=== PATIENT | female | born 1960 | race Caucasian/White ===

== ENCOUNTER → 2020-06-08 15:22 | Outpatient (CLI) | payer MEDICARE, SELFPAY ==
[2020-06-08 15:58] LABS: Add Manual Diff / Slide Review NO; Basophils Absolute Auto 100 /uL (0-100); Basophils Percent Auto 0.8 % (0-2); Eosinophils Absolute Auto 200 /uL (0-450); Eosinophils Percent Auto 1.7 % (2-4); Hematocrit 45.9 % (36-46); Hemoglobin 15.6 g/dL (12.0-16.0); Lymphocytes Absolute Auto 3600 /uL (1100-4500); Lymphocytes Percent Auto 27.8 % (25-40); Mean Corpuscular HGB Conc 34.1 % (30-36); Mean Corpuscular Hemoglobin 30.2 PG (26-34); Mean Corpuscular Volume 88.7 fL (80-100); Monocytes Absolute Auto 800 /uL (0-900); Monocytes Percent Auto 5.7 % (3-14); Neutrophils Absolute Auto 8400 /uL (1500-7000); Platelet Count 229 X10^3/uL (150-400); Red Blood Cell Count 5.17 X10^6/uL (4.0-5.2); Red Cell Distribution Width 13.9 % (11.6-14.8); White Blood Cell Count 13.1 X10^3/uL (4.5-11.0)
[2020-06-08 16:28] LABS: Hemoglobin A1C% w Est Avg Glu 5.9 % (4.0-6.0)
[2020-06-08 17:36] LABS: BUN Creatinine Ratio 33.3 (6-22); Blood Urea Nitrogen 20 mg/dL (7-17); Calcium 9.5 mg/dL (8.4-10.2); Carbon Dioxide 26 mmol/L (22-32); Chloride 103 mmol/L (98-107); Estimated Glomerular Filt Rate > 60.0 mL/min (>60); Glucose 87 mg/dL (70-100); HEMOLYSIS < 15 (0-50); Potassium 4.5 mmol/L (3.4-5.1); Sodium 136 mmol/L (137-145)
== END ==
PROVIDERS: Referring Provider Orthopaedic Surgery Adult Reconstructive Orthopaedic Surgery; Visit Provider Orthopaedic Surgery Adult Reconstructive Orthopaedic Surgery
DX: Z01.812 Encounter for preprocedural laboratory examination (principal); R73.9 Hyperglycemia, unspecified
CPT/HCPCS: 36415; 80048; 83036; 85025

== ENCOUNTER → 2020-06-13 13:39 | Outpatient (CLI) | payer MEDICARE, SELFPAY ==
[2020-06-13 17:40] LABS: COVID19 -Nasal RAPID Negative (Negative)
== END ==
PROVIDERS: Visit Provider Physician Assistant
DX: Z20.822 Contact with and (suspected) exposure to COVID-19 (principal)
CPT/HCPCS: 87635; C9803

== ENCOUNTER 2020-06-15 11:02 | Day surgery (SDC) | payer MEDICARE, SELFPAY ==
[2020-06-15] VITALS (18 sets, daily range): BP systolic 106–136; BP diastolic 54–80; PULSE 73–95; RESP 16–24; TEMP 36.1–37.2; O2SAT 92–97; BMI 28.0
--- NOTE | 2020-06-15 | DI.RAD.S_ITS ---
PROCEDURE: XR PELVIS 1-2V INDICATIONS: RIGHT ANTERIOR HIP TECHNIQUE: 2 view(s) of the pelvis acquired. COMPARISON: [facility], CR, XR PELVIS WITH BILATERAL LATERAL HIPS, 04/04/2020, 14:07. FINDINGS: Bones: No fractures or dislocations. No suspicious bony lesions. Right hip arthroplasty is present. Hardware is intact without evidence of hardware fracture or periprosthetic loosening. There is severe narrowing of the left hip joint with areas of subchondral sclerosis and cysts. There is a slight appearance of flattening of the femoral head. Soft tissues: Visualized bowel gas pattern is normal. No suspicious soft tissue calcifications. IMPRESSION: 1. Right hip arthroplasty. 2. 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 Dictated by: Caterina Limon M.D. on 06/15/2020 at 17:40 Approved by: Caterina Limon M.D. on 06/15/2020 at 17:41
--- NOTE | 2020-06-15 07:47 | DI.RAD.S_ITS ---
PROCEDURE: XR HIP W PEL IF DONE RT 2V INDICATIONS: Right BART, anterior TECHNIQUE: 2 views of the hip were acquired. COMPARISON: [facility], CR, XR PELVIS 1-2V, 06/15/2020, 15:58. FINDINGS: Intraoperative images demonstrating right hip arthroplasty. There is good anatomic alignment. Osseous structures appear intact. IMPRESSION: Intraoperative right hip arthroplasty with good anatomic alignment. Dictated by: Caterina Limon M.D. on 06/15/2020 at 17:42 Approved by: Caterina Limon M.D. on 06/15/2020 at 17:42
[2020-06-15] MEDS: LACTATED RINGERS 1,000 ML 42 ML IV (12:00)
[2020-06-15] MEDS: PREGABALIN 75 MG CAPSULE PO (12:03)
[2020-06-15] MEDS: ACETAMINOPHEN 325 MG TABLET 975 MG PO (12:03)
[2020-06-15] MEDS: CELECOXIB 200 MG CAPSULE PO (12:04)
--- NOTE | 2020-06-15 12:45 | PM.PREOP ---
Pre-operative Note COVID-19 COVID-19 status: Negative Result date/Date tested (Pos, Neg/Pending): 06/13/20 Interval Note History & Physical reviewed/Exam performed by Physician: Yes Changes to H&P: No H&P completed within 30 days and has changed as indicated here:: Plan for right anterior BART
[2020-06-15] MEDS: CEFAZOLIN 2 GM/100 ML FROZ.PIGGY IV ×2 (13:31→21:15)
[2020-06-15] MEDS: TRANEXAMIC ACID 1,000 MG VIAL 2000 MG INJ ×2 (13:58→15:28)
--- NOTE | 2020-06-15 14:07 | SUR.OPER ---
Supine on padded [place] table with bilateral legs secured in padded positioning boots and suspended in positioning spars, operative leg in traction per surgeon. Head on one pillow. Arm on non-operative side secured on padded armboard <90 degrees abduction. Arm on operative side padded and resting across chest then secured with tape over sheet. Padded perineal post in place per surgeon.
[2020-06-15] MEDS: KETOROLAC 30 MG/ML VIAL IV (14:13)
[2020-06-15] MEDS: ROPIVACAINE 0.5% PF 5 MG/ML 20ML VIAL 60 ML INJ (14:14)
[2020-06-15] MEDS: MORPHINE 4 MG/ML INJ INJ (14:14)
[2020-06-15] MEDS: SODIUM CHLORIDE IRRIG SOLUTION 250 ML, POVIDONE-IODINE SPONGE STICKS 1 APPLIC IRR (14:15)
--- NOTE | 2020-06-15 15:51 | P.OP_ITS ---
Operative Date/Time/Diagnoses Date of procedure: 06/15/20 Time of procedure: 15:51 Pre-op diagnosis: right hip OA Post-op diagnosis: same Procedure & Clinicians Procedure: right anterior BART Same procedure as scheduled: Yes Indications: severe right hip OA Surgeon: Mathieu León Coal Crusher Operator: Brendan Sanchez Anesthesia Type: General and Spinal Operative Notes Findings: Severe right hip osteoarthritis with obliteration of the joint space large head and neck osteophytes large acetabular rim osteophytes sclerotic bone and subchondral cysts. Closure Type: primary Prosthetic devices, grafts, tissues, transplants, or devices: Lovell [employer]hew R3 52 mm cup 1x 15 mm screw 1x 25 mm screw 52 x 36 mm ceramic Biolox liner Size 4 high offset anthology stem 36+ 4 delta Biolox ceramic head Estimated Blood Loss (mL): 200 Procedure in detail: Patient was met in the preoperative holding area where the site and side of surgery were marked by . Informed consent had been reviewed in clinic was also reviewed the preoperative holding area. All last minute questions were answered. Patient is about back to the operating room where she received a spinal anesthetic. She was then placed supine on operating room table and induced under general anesthesia. Bilateral feet were then placed in well-padded [place] table boots. The right lower extremity then prepped and draped in normal sterile fashion. A surgical time-out was performed verifying the site and side of surgery as well as the name patient. A 10 cm long incision was made in the skin using 10. Blade from approximately 2 cm distal and 1 cm lateral to at IS aiming towards the fibular head. Electrocautery was used to dissect down the level of the tensor fascia. The tensor fascia was then incised using a new 10. Blade and Allis clamp was placed on the medial leaflet the tensor fascia and the tensor muscle self was reflected laterally. A Cobra was placed over the superior aspect of femoral neck. A Meyerding retractor was then placed over the lateral aspect of the rectus femoris and retracted medially. This gave us good exposure to the sending branches of the femoral circumflex vessels. These were coagulated using electrocautery. A 2nd Cobra retractor was then placed on the inferior aspect of the femoral neck and a bent Hohmann was placed over the anterior rim of the acetabulum to give us good exposure the femoral neck. An inverted T-shaped capsulotomy was then performed and a FiberWire suture placed on the superior and inferior leaflets of the capsulotomy. At this point it was noted she had large neck and rim osteophytes. Retractors then placed intracapsularly a rongeur was used to remove some the next osteophytes at the reciprocating saw was used to make a femoral neck cut. The head was then able to be removed without breaking any the rim osteophytes. I began reaming under direct visualization with a 43 mm Reamer to get through the sclerotic bone and then upsized by 2s on on this until 49 mm Reamer. I then brought in fluoroscopy to guide final reaming. Reaming under fluoroscopic guidance at 49 mm and 51 mm reamers. This had good resistance at 51 mm I then touch reamed the rim with a 52 mm Reamer then selected R3 52 mm cup and this is malleted into place under fluoroscopic guidance. Two screws were then placed. A trial 52 x 36 mm flat liner was then placed. The femoral elevator hook was then placed in the posterior aspect of the femur. The femur was externally rotated to 120? of external rotation was extension the floor and adducted. A bent Hohmann was then placed over the superior aspect of the superior leaflet and the superior leaflet was released from the inner shoulder of the greater trochanter. A single prong retractor was then placed over the greater trochanter and Meyerding was placed over the medial calcar. At this point was noted the residual neck cut was exceptionally long. An oscillating saw was then used to make a napkin ring cut of the femoral neck. I then used a canal finer followed by a chili pepper broach followed by a 1. Broach up to a size 4. I then calcar planed off the size 4 broach. I then trialed with a high offset neck and a 36+ 0 head. The hip was stable to maximal external rotation as well as external rotation to 90? and extension to the floor. Fluoroscopy was brought in which showed good neck good canal fill with the femoral component as well as equal leg lengths. We elected to lengthen her because she short on the chondral lateral side due to severe osteoarthritis as well we 1 medial to make up this length on the contralateral side. The hip was then dislocated the trial components removed including the acetabular liner. A 52 x 36 mm Biolox Delta ceramic liner was then malleted into the cup checking the the rim was flush. Then turned our attention back to the femur removed the broach and placed a size 4 femoral stem with high offset. I then placed a 36+ 4 Biolox Delta ceramic head on the trunnion and malleted this into place. The hip was then reduced a final time. Local anesthetic injection was infiltrated into the capsule the periarticular tissues. Betadine solution was then placed in the wound. Final fluoroscopic images were obtained. The Betadine solution was then lavaged with copious normal saline the capsulotomy was closed using a running Ethibond suture the FiberWire tag sutures were removed. The tensor fascia was then closed with a running locking 1. Vicryl 2 0 Vicryl in the subcutaneous layer and 3-0 running Stratafix in the subcuticular followed by Dermabond on the skin and Aquacel dressing. Complications: none Post-operative Condition: stable Disposition: PACU Plan for aftercare: 24 hours post-op abx, ASA 325mg BID for 6 weeks for DVT prophylaxis, WBAT RLE
[2020-06-15] MEDS: OXYCODONE IR 5 MG TABLET PO ×2 (16:08→21:16)
[2020-06-15] MEDS: hydrOXYzine pamoate 25 MG CAPSULE PO (16:17)
[2020-06-15] MEDS: fentaNYL 100 MCG/2 ML INJ IV (16:26)
[2020-06-15] MEDS: LACTATED RINGERS 1,000 ML 125 ML IV (17:25)
--- NOTE | 2020-06-15 19:51 | PC.NURSE ---
Admit/Evening Shift Note- Patient arrived to room via bed from PACU at 1705. ADmit questions done, medications reviewed, and physical assessemnt and skin check completed. Oriented patient to bed and bed coontrols, room, lights, phone, menu, bathroom, and call vela/tv remote. No complaints of n/v. Patient tolerated dinner without issue. Ice pack in place to right hip. Dressing to right hip C/D/I. Safety measures in place. Patient agrees to call for assistance. CAll vela and phone within reach. Will continue to monitor.
[2020-06-15] MEDS: TRAMADOL 50 MG TABLET 100 MG PO ×2 (20:00→23:29)
[2020-06-15] MEDS: ASPIRIN EC 81 MG TABLET PO (21:15)
[2020-06-15] MEDS: ACETAMINOPHEN 325 MG TABLET 650 MG PO (21:15)
[2020-06-15] MEDS: IBUPROFEN 400 MG TABLET PO (21:16)
[2020-06-15] MEDS: DOCUSATE 100 MG CAPSULE PO (21:16)
[2020-06-15] MEDS: AMITRIPTYLINE 25 MG TABLET 50 MG PO (21:56)
[2020-06-16] MEDS: IBUPROFEN 400 MG TABLET PO ×3 (00:33→09:07)
[2020-06-16] MEDS: LACTATED RINGERS 1,000 ML 125 ML IV (01:55)
[2020-06-16] MEDS: OXYCODONE IR 5 MG TABLET PO ×4 (03:06→12:05)
--- NOTE | 2020-06-16 03:14 | PC.NURSE ---
0036 patient is alert and oriented. Breath sounds CTA with RA sat of 93%; on continuous oximetry. HRR. Denies nausea. BT present but denies passing flatus as yet. Denies dysuria, frequency or urgency with urination. Able to move self in bed although is unable to lift right leg off bed as yet. Gait not assessed at this time but evening RN reports patient was up with walker and 1 assist; patient denies any weakness in right LE. Aquacel dressing is CDI. Does complain of 4/10 right groin pain and was medicated at shift change with Tramadol and now with scheduled Ibuprofen and declines any additional pain medication; ice pack applied. Denies any tingling/numbness and skin is warm to touch; good capillary refill. Wearing bilateral calf SCD's. Fall risk score is moderate and bed alarm is activated. At this time patient called and states she is having 5/10 right hip and abdominal pain. Medicated with Oxycodone. Believes abdominal pain may be gas pains. Up to bathroom with walker and 1 assist.
[2020-06-16 03:34] VITALS: BP 139/61; PULSE 102; RESP 16; TEMP 36.8; O2SAT 93
[2020-06-16] MEDS: CEFAZOLIN 2 GM/100 ML FROZ.PIGGY IV (05:19)
[2020-06-16] MEDS: LEVOTHYROXINE 75 MCG TABLET PO (05:49)
[2020-06-16 06:34] LABS: Hematocrit 35.5 % (36-46); Hemoglobin 11.8 g/dL (12.0-16.0)
[2020-06-16 07:45] VITALS: BP 141/82; PULSE 81; RESP 18; TEMP 36.7; O2SAT 97
[2020-06-16] MEDS: ASPIRIN EC 81 MG TABLET PO (09:07)
[2020-06-16] MEDS: ACETAMINOPHEN 325 MG TABLET 650 MG PO (09:07)
[2020-06-16] MEDS: DOCUSATE 100 MG CAPSULE PO (09:07)
[2020-06-16] MEDS: TRAMADOL 50 MG TABLET 100 MG PO (09:08)
[2020-06-16] MEDS: SODIUM CHLORIDE 0.9% FLUSH 10 ML IV (09:08)
--- NOTE | 2020-06-16 09:12 | PC.NURSE ---
Addendum entered by Mara Avelar R.N. 06/16/20 12:09: Patient given Oxy 5mg PO PRN before discharge, pain 7/10. Patient discharged via personal wheelchair with gabriela accompanied to pharmacy where patient and would like to wait for prescriptions to be filled. Addendum entered by Mara Avelar R.N. 06/16/20 12:02: IV removed for patient discharge. Education given regarding f/u appointment, medications, s/s of infection, fall risks at home and activity. Patient verbalized understanding. Prescriptions given to Fish, to fill at pharmacy. Patient dressed. Tolerated. Original Note: Patient A/O x 4. Up with SBA using FWW to the restroom, voiding clear, yellow urine. Last BM 06/14, BT active x 4. R hip dressing CDI. No redness, streaking, pulses equal bilaterally. Patient c/o pain 7/10, PRN Oxy 5 mg administered. Patient afebrile. SCD's on bilaterally. Lungs CTA, HR WNL. Patient up to chair. Call light in reach. Patient verbalizes understanding to call before getting up.
--- NOTE | 2020-06-16 09:36 | PM.DS.1 ---
History of Present Illness History of Present Illness Date Patient Seen: 06/16/20 Time Patient Seen: 09:36 Chief complaint: *OPB* Narrative: Please refer to HPI previously documented in chart. Discharge Providers Provider Discharge Date: 06/16/20 Primary care physician: Doctor Demetrice MD Consults: 06/15/20 07:47 Consult to Anesthesiology Routine Comment: Consulting Provider: Anesthesiologist Reason for consultation: Regional block for post operative pain control 06/15/20 17:11 Consult to Discharge Planning Routine Comment: Consult to Physical Therapy Evaluate & Treat Comment: Physician Instructions: post op BART protocol Consult to Respiratory Therapy Evaluate & Treat Comment: Physician Instructions: Evaluate and treat Discharge provider: Tony Meeks PA-C Summary Hospital Course Discharge Diagnosis: Right hip osteoarthritis Status post right total anterior hip arthroplasty Hospital Course: 59-year-old female with the above-listed diagnoses was appropriately consented for the above listed procedure presenting to the OR undergoing said procedure without difficulty or complication then admitted for rehabilitation convalescing without significant issue and stable for discharge home safely today after evaluation noting ability to void without difficulty and denying intractable pain or dysfunction including but not limited to fever, chills, chest pain and shortness of breath. The patient and or family verbalized understanding postoperative care instructions and plan for follow-up for re-evaluation in 2 weeks. Status at Discharge Cognitive/behavioral status at discharge: oriented Functional status at discharge: uses cane/walker Overall status at discharge: patient is progressing back to baseline Time Spent with Patient Time spent: Less than 30 minutes Exam Vital Signs (past 8 hours): - 06/16/20 03:34 06/16/20 07:45 Temperature 98.2 F 98.1 F Pulse Rate 102 H 81 Respiratory Rate 16 18 Blood Pressure 139/61 141/82 H Pulse Oximetry 93 97 Oxygen Delivery Method Room Air Oxygen Flow Rate 0 Narrative Exam Narrative: Well-developed well nourished and observed resting comfortably in no apparent distress, alert and oriented x3 with normal heart rate and inspiratory effort. Their dressing was clean, dry and intact. The patient's extremities were neurovascularly intact without signs or symptoms of DVT. Objective Labs Result Diagrams: 06/16/20 06:14 Labs: Laboratory Results - last 24 hr 06/16/20 06:14 Hgb 11.8 L Hct 35.5 L PFSH Social History household members: spouse Smoking Status: Current every day smoker alcohol intake: former Discharge Assessment & Plan Assessment and Plan Assessment: Right hip osteoarthritis Status post right total anterior hip arthroplasty in stable condition Plan of Treatment: Discharge home today. Total hip care protocol. Follow-up in 2 weeks for re-evaluation or sooner as needed. Discharge Plan Discharge Plan Patient Disposition: Home Discharge orders & Medications Discharge Orders: Discharge (Order); Ordered 06/16/20 Ordered By: Tony Meeks Prescriptions: New acetaminophen 325 mg Tablet 650 mg PO TID Qty: 60 RF: 0 aspirin 325 mg tablet,delayed release (DR/EC) 325 mg PO BID Qty: 90 RF: 0 oxycodone 5 mg Tablet 5 mg PO Q4-5H PRN (Reason: Pain, Moderate (4-6)) Qty: 60 RF: 0 Continued meloxicam 15 mg tablet 15 mg PO DAILY RF: 0 lisinopril 20 mg tablet 20 mg PO DAILY RF: 0 amitriptyline 50 mg tablet 50 mg PO DAILY RF: 0 levothyroxine 75 mcg Tablet 75 mcg PO DAILY RF: 0 albuterol 2 puff PO BID RF: 0 Changed aspirin 325 mg Tablet 325 mg PO BID Qty: 0 RF: 0 Discontinued tramadol 50 mg tablet 100 mg PO QID RF: 0 Follow up/Referrals: Doctor Suresh MD [Primary Care Provider] - Mathieu León MD [Physician] - (2 weeks) Diet/Activity/Treatments Diet: Diet as Tolerated Activity: WBAT and avoid falls Cold/Heat Therapy: Ice 20 min on per hour as tolerated. Skin/Wound/Dressing Care Report to your healthcare provider any signs of infection, such as:: chills, fever, night sweats, increased pain, unusual drainage and unusual redness Dressing: Keep clean dry and intact Visit Report/Discharge Packet Instructions: DI for Hip Replacement Stand Alone Forms: Surgery Discharge Discharge Data Primary Care Provider: Doctor Demetrice Attending Provider: Mathieu León Quality VTE Deep Vein Thrombosis/Pulmonary Embolism Present on Admission: No
--- NOTE | 2020-06-16 09:51 | PT.IIE ---
Current Diagnoses Unilateral primary osteoarthritis, right hip (06/15/20) Surgery Performed Operation Date: 06/15/20 13:15 Actual Procedures p Total Hip Arthroplasty/Anterior Approach(Right) - Mathieu León MD Physical Therapy Inpatient Evaluation/Re-Eval M1 PT/OT-IP Prior Functional Status Start: 06/16/20 12:22 Freq: NEEDED Status: Active Protocol: Document 06/16/20 09:51 AB (Rec: 06/16/20 12:38 AB [id number]) Medical Review Prior Functional Status Medical History Reviewed Yes Communication able to make needs known Mobility and Gait pt stated that she is modified independent with mobility from a w/c level since december of last year due to hip pain but able to ambulate from bed to the toilet using a 4WW Social History Household Members spouse Living Arrangements House Number of Floors (Floors) One Floor Number of Stairs To Enter/Railing? 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 Additional Social History Comment stated that she has a [email or web address] shop in [place] has R side bed rails M2 PT-IP Current Condition Start: 06/16/20 12:22 Freq: NEEDED Status: Active Protocol: Document 06/16/20 09:51 AB (Rec: 06/16/20 12:38 AB [email or web address]) Physical Therapy Current Condition Current Condition Evaluation Date 06/16/20 Treatment Diagnosis R BART anterior approach; difficulty in walking Onset Date 06/15/20 Precautions Anterior Hip Precautions No Hip Extension,No Hip External Rotation Weight Bearing Status Weight Bearing Status Weight Bear as Tolerated Allowed Weight Bearing Amount (enter % RLE WBAT or #) (%) M3 PT-IP Subjective Start: 06/16/20 12:22 Freq: NEEDED Status: Active Protocol: Document 06/16/20 09:51 AB (Rec: 06/16/20 12:38 AB [email or web address]) Subjective Physical Therapy Visit Type Type Initial Evaluation Visit Start Time 09:51 Visit Stop Time 10:27 Total Visit Minutes 36 Number of COMPLAINT SUPERVISOR Visits 0 Physical Therapy Visit Comments Patient Comments pt is agreeable to do PT Therapy Pain Assessment Pain When Pain Assessed During Mobility Pain Present Pain Present Pain Reported Location right hip Intensity 4 Scale Used Numeric (0 - 10) Pain Management Techniques Distraction,Modification of Treatment,Re-positioning, Timing of Activity with Medications M4 PT-IP Mobility and Gait Start: 06/16/20 12:22 Freq: NEEDED Status: Active Protocol: Document 06/16/20 09:51 AB (Rec: 06/16/20 12:38 AB [email or web address]) PT-Bed Mobility Assessment Supine to Sit Supine to Sit Standby Assistance Sit to Supine Sit to Supine Standby Assistance PT-Transfer Assessment Sit to and From Stand Sit to and from Stand Standby Assistance Equipment Transfer Assistive Device Gait Belt,Front Wheeled Walker Orthotic/Prosthetic Devices or Brace: No Transfers Transfer Destination Bed,Chair Transfer Technique ambulated using FWW Transfer Ability Level of Assist Standby Assistance,Contact Guard Assistance,1 Person Assistance,Use of Upper Extremities Comments Mobility Comments educated pt on anterior hip precautions. completed sit to stand from chair CGA and cues . ambulated in room using FWW CGA and ambulated to the bed 20 ft CGA. completed supine<> sit SBA. pt assist her RLE up on bed with B hands. pt ambulated more in room using FWW ~ 40 ft SBA. agreed to sit up on chair. positioned on chair. call light and table placed within reach. offered caregiver training and declined. stated that she will be fine and does not need spouse to do any training. pt is aware of her hip precautions and plans to use her w/c to get into the house. Gait Assessment Gait Gait Assistance Required: Standby Assistance,Contact Guard Assist Distance (Feet) 40 Able to Maintain Weight Bearing Status Yes During Gait Assistive Devices Assistive Device Gait Belt Factors Limiting Gait Function Factors Limiting Gait Function Decreased Activity Tolerance, Decreased Strength,Pain,Poor Balance,Poor Safety Awareness Comments Gait Comments pls refer to mobility section for details PT-Balance Assessment Sitting Balance and Reactions Static Sitting Balance Ability Good Dynamic Sitting Balance Ability Good Standing Balance and Reactions Static Standing Balance Ability Fair Dynamic Standing Balance Ability Fair Device Used FWW M5 PT-IP Objective Assessments Start: 06/16/20 12:22 Freq: NEEDED Status: Active Protocol: Document 06/16/20 09:51 AB (Rec: 06/16/20 12:38 AB [email or web address]) Orientation Orientation/Cognition Level of Alertness Alert Orientation Name,Place,Situation Safety Awareness Decreased Safety Awareness Memory Description Short Term Impaired Gross Range of Motion Lower Extremity ROM Assessment Within Functional Limits Strength Lower Extremity Strength Assessment Right Impaired Hip 3-/5 Knee 3+/5 Sensation Assessment Sensation Gross Sensation WNL Muscle Tone Muscle Tone WNL Yes M6 PT-IP Treatment Start: 06/16/20 12:22 Freq: NEEDED Status: Active Protocol: Document 06/16/20 09:51 AB (Rec: 06/16/20 12:38 AB [id number]) Physical Therapy Treatment Education Education Provided Precautions,Weight Bearing Status,Post-Op Packet,Safety M7 PT-IP Assessment and Plan Start: 06/16/20 12:22 Freq: NEEDED Status: Active Protocol: Document 06/16/20 09:51 AB (Rec: 06/16/20 12:38 AB [email or web address]) PT Summary Assessment and Plan Potential Rehabilitation Potential Good Status of Condition at Evaluation Stable Summary Impairments Pain,ROM,Strength,Balance, Coordination,Sensation,Tone, Cognition,Bed Mobility, Transfers,Gait,Activity Tolerance Assessment Summary pt requiring SBA with mobility . initially requiring CGA but was able to complete tasks towards end of tx session with only SBA. pt plans to go home and spouse to assist her. pt stated that she is set up for outpt PT. Pt may go home when medically stable. Goals Bed Mobility Goal Independent Transfer Goal Independent,Front Wheeled Walker Gait Goal Independent,Front Wheel Walker Gait Distance 250 Days to Meet Goals 3 Frequency of Treatment Frequency Of Treatment Twice a Day Treatment Plan Physical Therapy Treatment Plan Bed Mobility Training,Transfer Training,Gait Training, Therapeutic Exercise,Balance Retraining,Post Op Education, Discharge Planning,Hot or Cold Pack,Neuromuscular Re-ed, Coordination Retraining,Manual Therapy Precautions Anterior Hip Precautions No Hip Extension,No Hip External Rotation Recommendations To Nursing Amount of Assist Needed 1 Person Assist Discharge Recommendations PT Discharge Recommendations Home with Assistance, Outpatient PT Transportation Needs at Discharge Private Vehicle
--- NOTE | 2020-06-16 10:40 | CM.IDA ---
Initial DCP Assessment Note Pt is a 59 yo female, resident of [place], now POD#1 from Rt hip surgery w/ Dr León PCP: Not Listed Payer: [facility] Reviewed chart, pt discussed in multidisciplinary rounds this morning. Therapy has cleared pt for return home w/family to assist and pt has planned for home, DC order from Ortho has already been initiated this morning. Met w/patient to introduce role. 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 No needs expected from DC planning team although will remain available in case this changes today. Drea Cook, MARKETING ANALYTICS LEAD
== END 2020-06-16 12:14 | disposition home or self-care (01) ==
LOC: OR 11:03 → AC 11:04
PROVIDERS: Referring Provider Orthopaedic Surgery Adult Reconstructive Orthopaedic Surgery; Visit Provider Orthopaedic Surgery Adult Reconstructive Orthopaedic Surgery
PROC: (CPT 27130; principal; 2020-06-15 13:15)
DX: M16.11 Unilateral primary osteoarthritis, right hip (principal); F17.210 Nicotine dependence, cigarettes, uncomplicated; E03.9 Hypothyroidism, unspecified; I10 Essential (primary) hypertension; E78.5 Hyperlipidemia, unspecified
CPT/HCPCS: 27130; 36415; 72170; 73502; 76000; 82962; 85014; 85018; 94762; 97161; 97530; 99406; C1776; A9270; J0690; J1100; J1885; J2250; J2270; J2274; J2405; J2704; J3010

== ENCOUNTER → 2020-10-18 13:25 | Outpatient (CLI) | payer MEDICARE, MEDICAID, SELFPAY ==
[2020-06-15 11:04] VITALS: BMI 28.0
[2020-10-18 14:56] LABS: Add Manual Diff / Slide Review NO; Basophils Absolute Auto 0 /uL (0-100); Basophils Percent Auto 0.4 % (0-2); Eosinophils Absolute Auto 100 /uL (0-450); Eosinophils Percent Auto 1.2 % (2-4); Hematocrit 46.1 % (36-46); Hemoglobin 15.1 g/dL (12.0-16.0); Lymphocytes Absolute Auto 3100 /uL (1100-4500); Lymphocytes Percent Auto 26.6 % (25-40); Mean Corpuscular HGB Conc 32.7 % (30-36); Mean Corpuscular Hemoglobin 27.9 PG (26-34); Mean Corpuscular Volume 85.4 fL (80-100); Monocytes Absolute Auto 700 /uL (0-900); Monocytes Percent Auto 5.6 % (3-14); Neutrophils Absolute Auto 7700 /uL (1500-7000); Neutrophils Percent Auto 66.2 % (50-75); Platelet Count 263 X10^3/uL (150-400); Red Cell Distribution Width 15.9 % (11.6-14.8); White Blood Cell Count 11.6 X10^3/uL (4.5-11.0)
[2020-10-18 15:15] LABS: BUN Creatinine Ratio 28.8 (6-22); Blood Urea Nitrogen 17 mg/dL (7-17); Calcium 9.5 mg/dL (8.4-10.2); Carbon Dioxide 25 mmol/L (22-32); Chloride 105 mmol/L (98-107); Estimated Glomerular Filt Rate > 60.0 mL/min (>60); Glucose 94 mg/dL (70-100); HEMOLYSIS < 15 (0-50); Potassium 4.6 mmol/L (3.4-5.1); Sodium 140 mmol/L (137-145)
[2020-10-18 15:16] LABS: Hemoglobin A1C% w Est Avg Glu 6.1 % (4.0-6.0)
== END ==
PROVIDERS: PCP Family Medicine; Referring Provider Orthopaedic Surgery Adult Reconstructive Orthopaedic Surgery; Visit Provider Orthopaedic Surgery Adult Reconstructive Orthopaedic Surgery
DX: Z01.812 Encounter for preprocedural laboratory examination (principal); R73.9 Hyperglycemia, unspecified
CPT/HCPCS: 36415; 80048; 83036; 85025

== ENCOUNTER → 2020-11-02 10:57 | Outpatient (CLI) | payer MEDICARE, MEDICAID, SELFPAY ==
[2020-06-15 11:04] VITALS: BMI 28.0
[2020-11-02 12:34] LABS: COVID19 -Nasal RAPID Negative (Negative)
== END ==
PROVIDERS: PCP Family Medicine; Referring Provider Student in an Organized Health Care Education/Training Program; Visit Provider Student in an Organized Health Care Education/Training Program
DX: Z01.812 Encounter for preprocedural laboratory examination (principal); Z20.822 Contact with and (suspected) exposure to COVID-19
CPT/HCPCS: 87635; C9803

== ENCOUNTER 2020-11-03 06:20 | Day surgery (SDC) | payer MEDICARE, MEDICAID, SELFPAY ==
[2020-06-15 11:04] VITALS: BMI 28.0
[2020-10-24 10:47] VITALS: BMI 27.8
[2020-11-03] VITALS (12 sets, daily range): BP systolic 106–134; BP diastolic 58–84; PULSE 73–96; RESP 14–20; TEMP 36.1–36.8; O2SAT 91–98; BMI 27.8
--- NOTE | 2020-11-03 06:29 | DI.RAD.S_ITS ---
PROCEDURE: XR HIP W PEL IF DONE LT 2V INDICATIONS: left BART TECHNIQUE: AP pelvis and lateral view of the left hip acquired. COMPARISON: [facility], CR, XR PELVIS WITH LATERAL HIP RIGHT, 08/09/2020, 16:29. [facility], CR, XR HIP W PEL IF DONE LT 2V, 11/03/2020, 8:58. FINDINGS: Bones: Patient is status post left hip arthroplasty, with hardware components in expected positions. The hip joint appears congruent. The visualized bony structures appear intact. Soft tissues: Overlying postoperative changes are noted. No suspicious soft tissue densities. IMPRESSION: Expected immediate postoperative appearance, status post total left hip arthroplasty. Dictated by: Daniel Greco M.D. on 11/03/2020 at 14:29 Approved by: Daniel Greco M.D. on 11/03/2020 at 14:29
[2020-11-03] MEDS: ACETAMINOPHEN 325 MG TABLET 975 MG PO (07:06)
[2020-11-03] MEDS: CELECOXIB 200 MG CAPSULE PO (07:07)
[2020-11-03] MEDS: PREGABALIN 75 MG CAPSULE PO (07:07)
[2020-11-03] MEDS: LACTATED RINGERS 1,000 ML 42 ML IV (07:11)
--- NOTE | 2020-11-03 07:27 | PM.PREOP ---
Pre-operative Note COVID-19 COVID-19 status: Negative Result date/Date tested (Pos, Neg/Pending): 11/02/20 Interval Note History & Physical reviewed/Exam performed by Physician: Yes Changes to H&P: No H&P completed within 30 days and has changed as indicated here:: Plan for L BART
[2020-11-03] MEDS: CEFAZOLIN 1 GM VIAL 2 GM IV ×3 (08:03→23:20)
[2020-11-03] MEDS: TRANEXAMIC ACID 1,000 MG VIAL 2000 MG INJ (08:24)
--- NOTE | 2020-11-03 08:33 | SUR.OPER ---
Patient supine on padded [place] table, one arm on padded arm board at <90, other arm padded and secured with tape across patient's chest, both legs secured in padded traction boots and positioned per surgeon, padded post at patient's groin, pressure points checked and padded.
[2020-11-03] MEDS: ROPIVACAINE 0.5% PF 5 MG/ML 20ML VIAL 60 ML INJ (08:39)
[2020-11-03] MEDS: KETOROLAC 30 MG/ML VIAL IV (08:41)
[2020-11-03] MEDS: SODIUM CHLORIDE IRRIG SOLUTION 250 ML, POVIDONE-IODINE SPONGE STICKS 1 APPLIC IRR (08:42)
[2020-11-03] MEDS: MORPHINE 4 MG/ML INJ INJ (08:42)
--- NOTE | 2020-11-03 10:00 | DI.RAD.S_ITS ---
PROCEDURE: XR HIP W PEL IF DONE LT 2V INDICATIONS: Left anterior hip TECHNIQUE: Four intraoperative fluoroscopic views of the left hip. views of the hip were acquired. COMPARISON: None. FINDINGS: There are bilateral total hip arthroplasties. The hardware appears normal. No perihardware lucency identified. No upper sioux bone fracture IMPRESSION: Left total hip arthroplasty changes. No acute complicating hardware feature identified. Dictated by: Eliud Hernández M.D. on 11/03/2020 at 14:20 Approved by: Eliud Hernández M.D. on 11/03/2020 at 14:21
--- NOTE | 2020-11-03 10:14 | PM.OP.1 ---
Operative Date/Time/Diagnoses Date of procedure: 11/03/20 Time of procedure: 10:14 Pre-op diagnosis: left hip OA Post-op diagnosis: same Procedure & Clinicians Procedure: Left anterior BART Same procedure as scheduled: Yes Indications: Severe left hip OA Surgeon: Mathieu León [facility] Representative: Karthikeyan Solano Click Yes if Unassisted: No Anesthesia Type: General and Spinal Operative Notes Findings: severe left hip OA with head collapse and large rim osteophytes. Closure Type: primary Specimen(s): none sent Prosthetic devices, grafts, tissues, transplants, or devices: [employer] R3 52mm cup 2x 20mm screw 52 x 36 mm delta biolox liner Anthology size 4 stem high offset Delta Biolox head 36 +8 Estimated Blood Loss (mL): 200 Procedure in detail: Patient was met in the preoperative holding area where the site and side of surgery were marked by . Informed consent had been reviewed in clinic was also reviewed the preoperative holding area. All last minute questions were answered. Patient is about back to the operating room where she received a spinal anesthetic. She was then placed supine on operating room table and induced under general anesthesia. Bilateral feet were then placed in well-padded [place] table boots. The left lower extremity then prepped and draped in normal sterile fashion. A surgical time-out was performed verifying the site and side of surgery as well as the name patient. A 10 cm long incision was made in the skin using 10. Blade from approximately 2 cm distal and 1 cm lateral to ASIS aiming towards the fibular head. Electrocautery was used to dissect down the level of the tensor fascia. The tensor fascia was then incised using a new 10. Blade. An Allis clamp was placed on the medial leaflet the tensor fascia and the tensor muscle self was reflected laterally. A Cobra was placed over the superior aspect of femoral neck. A Meyerding retractor was then placed over the lateral aspect of the rectus femoris and retracted medially. This gave us good exposure to the sending branches of the femoral circumflex vessels. These were coagulated using electrocautery. A 2nd Cobra retractor was then placed on the inferior aspect of the femoral neck and a bent Hohmann was placed over the anterior rim of the acetabulum to give us good exposure the femoral neck. An inverted T-shaped capsulotomy was then performed and a FiberWire suture placed on the superior and inferior leaflets of the capsulotomy. At this point it was noted she had large neck and rim osteophytes. Retractors then placed intracapsularly a rongeur was used to remove some the neck osteophytes and a reciprocating saw was used to make a femoral neck cut. The head was then able to be removed without breaking any the rim osteophytes. I began reaming under direct visualization with a 43 mm Reamer to get through the sclerotic bone and then upsized by 2s on on this until 49 mm Reamer. I then brought in fluoroscopy to guide final reaming. Reaming under fluoroscopic guidance at 49 mm and 51 mm reamers. This had good resistance at 51 mm I then touch reamed the rim with a 52 mm Reamer then selected R3 52 mm cup and this is malleted into place under fluoroscopic guidance. Two screws were then placed. The Delta Biolox liner 52 x 36 mm was then malleted into palce making sure it was well seated. The femoral elevator hook was then placed under the posterior aspect of the femur. The femur was externally rotated to 120? of external rotation was extension the floor and adducted. A bent Hohmann was then placed over the superior aspect of the superior leaflet and the superior leaflet was released from the inner shoulder of the greater trochanter. A single prong retractor was then placed over the greater trochanter and Neri was placed over the medial calcar. I then used a canal finer followed by a chili pepper broach followed by a 1. Her proximal femur diameter was very narrow A to P. I broached up to a size 3. I then calcar planed off the size 3 broach. I then trialed with a high offset neck and a 36+ 0 head. The hip was stable to maximal external rotation as well as external rotation to 90? and extension to the floor. Fluoroscopy was brought in which showed good canal fill with the femoral component. We were aprpoxiamtely 1 cm short on the operative side. I then dislocated the hip and removed the trials. I coutner sunk a size 3 broach and then placed a size 4 broach leaving it a few mm proud. I then re-trialed with a high offset neck and a +4 head. Again stable through ROM. Still several MM short on floro imaging. I removed the broach and placed a size 4 femoral stem with high offset. I then placed a 36+ 8 Biolox Delta ceramic head on the trunnion and malleted this into place. The hip was then reduced a final time. Local anesthetic injection was infiltrated into the capsule the periarticular tissues. Betadine solution was then placed in the wound. Final fluoroscopic images were obtained. The Betadine solution was then lavaged with copious normal saline the capsulotomy was closed using a running Ethibond suture the FiberWire tag sutures were removed. The tensor fascia was then closed with a running locking 1. Vicryl 2 0 Vicryl in the subcutaneous layer and 3-0 running Stratafix in the subcuticular followed by Dermabond on the skin and Aquacel dressing. Post-operative Condition: stable Disposition: PACU Plan for aftercare: 24 hours post-op abx, ASA 81mg BID for 6 weeks, WBAT LLE
[2020-11-03] MEDS: HYDROMORPHONE 2 MG INJ IV ×4 (10:40→11:00)
[2020-11-03] MEDS: OXYCODONE IR 5 MG TABLET PO ×2 (10:56→14:22)
[2020-11-03] MEDS: LACTATED RINGERS 1,000 ML 125 ML IV ×2 (11:51→20:25)
[2020-11-03] MEDS: ACETAMINOPHEN 325 MG TABLET 650 MG PO ×2 (14:22→20:24)
--- NOTE | 2020-11-03 14:31 | PC.NURSE ---
Patient A/O x 3, resting in bed, breathing unlabored, lungs CTA. Patient endorses sensation in LLE, CMS intact, no pain during admit, c/o pain 5/10 with assistance onto bedpan. Administered 5mg Oxy. Patient has voided. SCD's on. LR@125 infusing. Patient tolerating diet. Belongings including glasses, phone and ipad are bedside. Wheelchair brought up by PACU as well. Patient denies further needs. Call light in reach.
--- NOTE | 2020-11-03 15:10 | PT.IIE ---
Current Diagnoses Unilateral primary osteoarthritis, left hip (11/03/20) Surgery Performed Operation Date: 11/03/20 07:45 Actual Procedures p Total Hip Arthroplasty/Anterior Approach(Left) - Mathieu León MD Medical History (Last Updated 10/24/20 @ 10:56 by Elsy Owens RN) Arthritis DJD (degenerative joint disease) HLD (hyperlipidemia) HTN (hypertension) Thyroid disease Physical Therapy Inpatient Evaluation/Re-Eval M1 PT/OT-IP Prior Functional Status Start: 11/03/20 17:05 Freq: NEEDED Status: Active Protocol: Document 11/03/20 15:10 AB (Rec: 11/03/20 17:15 AB [id number]) Medical Review Prior Functional Status Medical History Reviewed Yes Communication able to make needs known Mobility and Gait pt stated that she is independent with all mobilities and ambulation without AD but occasionally uses a SPC Social History Household Members spouse Living Arrangements House Number of Floors (Floors) One Floor Number of Stairs To Enter/Railing? ramp to enter Home Environment Standard Height Toilet,Walk in Shower,Ramp Home Equipment Front Wheel Walker,Straight Cane,Raised Toilet Seat w/ Armrests,Shower Seat with Backrest,Hand Held Shower,Grab Bars In Shower Additional Social History Comment has R side bed rail M2 PT-IP Current Condition Start: 11/03/20 17:05 Freq: NEEDED Status: Active Protocol: Document 11/03/20 15:10 AB (Rec: 11/03/20 17:15 AB [email or web address]) Physical Therapy Current Condition Current Condition Evaluation Date 11/03/20 Treatment Diagnosis s/p L BART anterior approach; difficulty in walking Onset Date 11/03/20 Precautions Anterior Hip Precautions No Hip Extension,No Hip External Rotation Weight Bearing Status Weight Bearing Status Weight Bear as Tolerated Allowed Weight Bearing Amount (enter % LLE WBAT or #) (%) M3 PT-IP Subjective Start: 11/03/20 17:05 Freq: NEEDED Status: Active Protocol: Document 11/03/20 15:10 AB (Rec: 11/03/20 17:15 AB [id number]) Subjective Physical Therapy Visit Type Type Initial Evaluation Visit Start Time 14:45 Visit Stop Time 15:55 Total Visit Minutes 70 Number of DATA DEVELOPER Visits 0 Physical Therapy Visit Comments Patient Comments pt is agreeable to do PT Therapy Pain Assessment Pain When Pain Assessed At Rest Pain Present Pain Present Pain Reported Location Left Hip Intensity 7 Scale Used Numeric (0 - 10) Pain Management Techniques Apply Cold,Distraction, Modification of Treatment,Re- positioning,Timing of Activity with Medications M4 PT-IP Mobility and Gait Start: 11/03/20 17:05 Freq: NEEDED Status: Active Protocol: Document 11/03/20 15:10 AB (Rec: 11/03/20 17:15 AB [email or web address]) PT-Bed Mobility Assessment Supine to Sit Supine to Sit Standby Assistance Sit to Supine Sit to Supine Minimal Assistance Scooting Scooting to Edge of Bed Standby Assistance PT-Transfer Assessment Sit to and From Stand Sit to and from Stand Minimal Assistance,1 Person Assistance,Use of Upper Extremities Equipment Transfer Assistive Device Gait Belt,Front Wheeled Walker Orthotic/Prosthetic Devices or Brace: No Transfers Transfer Destination Toilet Transfer Technique ambulated Transfer Ability Level of Assist Minimal Assistance,1 Person Assistance,Use of Upper Extremities Comments Mobility Comments reviewed anterior hip precautions and pt was able to recall. pt just had R BART anterior last may. pt agreed to do PT. completed supine to sit SBA with pt using UE to move LLE to EOB. pt was able to sit on EOB SBA. requested to use the toilet. completed sit to stand min A and ambulated to the toilet ~ 20 ft min A using FWW. cued for L quads activation and steadiness. pt required min A for standing balance while managing brief/hygiene care. ambulated out of the toilet using FWW min A towards the sink. pt was able to maintain standing balance CGA to min A while completing handwashing. pt requested to go back to bed and ambulated to the bed FWW min A and cues. pt completed sit to supine min A for LLE up to bed. positioned pt in bed. call light and table placed within reach. Gait Assessment Gait Gait Assistance Required: Minimum Assistance Distance (Feet) 20 Able to Maintain Weight Bearing Status Yes During Gait Assistive Devices Assistive Device Gait Belt,Front Wheeled Walker Orthotic/Prosthetic Devices or Brace: No Gait Deviations General Gait Pattern Antalgic,Decreased Stride Length,Decreased Feet Clearance Factors Limiting Gait Function Factors Limiting Gait Function Decreased Activity Tolerance, Decreased Strength,Difficulty Following Directions,Limited Range of Motion,Pain,Poor Balance,Poor Safety Awareness Comments Gait Comments pls refer to mobility section for details PT-Balance Assessment Sitting Balance and Reactions Static Sitting Balance Ability Good Dynamic Sitting Balance Ability Good Standing Balance and Reactions Static Standing Balance Ability Fair Dynamic Standing Balance Ability Fair Device Used FWW M5 PT-IP Objective Assessments Start: 11/03/20 17:05 Freq: NEEDED Status: Active Protocol: Document 11/03/20 15:10 AB (Rec: 11/03/20 17:15 AB [id number]) Orientation Orientation/Cognition Level of Alertness Alert Orientation Name,Age,Place,Situation Safety Awareness Decreased Safety Awareness Memory Description Short Term Impaired Strength Lower Extremity Strength Assessment Left Impaired Hip 3+/5 Knee 4-/5 Coordination Assessment Gross Coordination Gross Coordination WNL Sensation Assessment Sensation Sensation Description Numbness Comments Sensation Comments still c/o buttocks numbness Muscle Tone Muscle Tone WNL Yes M6 PT-IP Treatment Start: 11/03/20 17:05 Freq: NEEDED Status: Active Protocol: Document 11/03/20 15:10 AB (Rec: 11/03/20 17:15 AB [email or web address]) Physical Therapy Treatment Exercises Exercises Heel Slides Education Education Provided Precautions,Weight Bearing Status,Post-Op Packet,Safety M7 PT-IP Assessment and Plan Start: 11/03/20 17:05 Freq: NEEDED Status: Active Protocol: Document 11/03/20 15:10 AB (Rec: 11/03/20 17:15 AB [email or web address]) PT Summary Assessment and Plan Potential Rehabilitation Potential Good Status of Condition at Evaluation Stable Summary Impairments Pain,ROM,Strength,Balance, Coordination,Sensation,Tone, Cognition,Bed Mobility, Transfers,Gait,Activity Tolerance Assessment Summary pt requiring min A with mobility using FWW. pt plans to go home and spouse to assist her. will continue to assess progress and conduct caregiver trainign when appropraite. Goals Bed Mobility Goal Independent Transfer Goal Independent,Front Wheeled Walker Gait Goal Independent,Front Wheel Walker Gait Distance 250 Days to Meet Goals 5 Frequency of Treatment Frequency Of Treatment Twice a Day Treatment Plan Physical Therapy Treatment Plan Bed Mobility Training,Transfer Training,Gait Training, Therapeutic Exercise,Balance Retraining,Post Op Education, Discharge Planning,Hot or Cold Pack,Neuromuscular Re-ed, Coordination Retraining,Manual Therapy Precautions Anterior Hip Precautions No Hip Extension,No Hip External Rotation Other Precautions WBAT LLE Recommendations To Nursing Amount of Assist Needed 1 Person Assist Discharge Recommendations PT Discharge Recommendations Home with Assistance, Outpatient PT Transportation Needs at Discharge Private Vehicle
[2020-11-03] MEDS: OXYCODONE IR 5 MG TABLET 10 MG PO ×3 (16:06→23:26)
[2020-11-03] MEDS: ALBUTEROL 2.5 MG/3 ML NEB (ADULT) INH (19:49)
[2020-11-03] MEDS: DOCUSATE 100 MG CAPSULE PO (20:24)
[2020-11-03] MEDS: ASPIRIN EC 325 MG TABLET PO (20:24)
[2020-11-03] MEDS: HYDROMORPHONE 1 MG INJ 0.2 MG IV (23:20)
[2020-11-04] MEDS: HYDROMORPHONE 1 MG INJ 0.2 MG IV (02:54)
[2020-11-04] MEDS: OXYCODONE IR 5 MG TABLET 10 MG PO ×3 (04:19→12:50)
[2020-11-04 04:22] VITALS: BP 139/63; PULSE 78; RESP 16; TEMP 37.1; O2SAT 96
[2020-11-04] MEDS: LEVOTHYROXINE 75 MCG TABLET PO (06:15)
[2020-11-04 06:29] LABS: Hematocrit 35.4 % (36-46); Hemoglobin 11.5 g/dL (12.0-16.0)
--- NOTE | 2020-11-04 07:18 | PM.DS.1 ---
History of Present Illness History of Present Illness Date Patient Seen: 11/04/20 Time Patient Seen: 07:18 Chief complaint: SDC Narrative: Refer to previous HPI. Discharge Providers Provider Discharge Date: 11/04/20 Primary care physician: Jadon Phan MD Consults: 11/03/20 06:29 Consult to Anesthesiology Routine Comment: Consulting Provider: Anesthesiologist Reason for consultation: Regional block for post operative pain control 11/03/20 11:39 Consult to Discharge Planning Routine Comment: Consult to Physical Therapy Evaluate & Treat Comment: Physician Instructions: post op BART protocol Consult to Respiratory Therapy Evaluate & Treat Comment: Physician Instructions: Evaluate and treat Discharge provider: Karthikeyan Solano PA-C Summary Hospital Course Discharge Diagnosis: Left hip osteoarthritis Status post left anterior total hip arthroplasty Hospital Course: Patient was admitted to the hospital following the above-listed procedure for the above-listed diagnosis. Following the procedure the patient has been convalescing appropriately in her pain has been managed with current pain management regimen. Aspirin 81 mg twice daily has been administered for DVT prophylaxis along with the assistance of sequential compression devices. Throughout her time in the hospital the patient has denied fever, chills, nausea, chest pain, shortness of breath, or urinary retention. She has remained weight-bearing as tolerated with the assistance of a front wheeled walker. Patient has successfully worked on ambulation with the assistance of a front wheeled walker with physical therapy. Aquacel dressing over the incision site has remained intact following surgery. Standard total hip replacement per protocol, anterior hip precautions. Status at Discharge Cognitive/behavioral status at discharge: oriented Functional status at discharge: uses cane/walker Overall status at discharge: patient is progressing back to baseline Exam Vital Signs (past 8 hours): - 11/03/20 23:25 11/04/20 04:22 Temperature 97.0 F L 98.7 F Pulse Rate 87 78 Respiratory Rate 16 16 Blood Pressure 106/70 139/63 Pulse Oximetry 95 96 Oxygen Delivery Method Room Air Oxygen Flow Rate 0 Narrative Exam Narrative: 60-year-old female postop day 1 status post left anterior total hip arthroplasty. Patient is resting comfortably in bed, is in no acute distress, is alert and oriented x3. Skin is warm and dry, and the skin surrounding the incision site is free of erythema, warmth, induration, or discharge. Aquacel dressing over the incision site is clean, dry, and intact. Good sensation appreciated throughout the bilateral lower extremities to light touch. Ankle dorsiflexion, plantar flexion, eversion, inversion performed bilaterally without difficulty or discomfort. DP pulses palpated bilaterally and are even. Calves are soft and nontender, negative Homans sign. No other signs of DVT appreciated. Const General: cooperative, healthy appearing and comfortable Resp Effort & Inspection: normal respiratory effort and able to speak in complete sentences Skin General: no rashes or lesions noted Objective Labs Result Diagrams: 11/04/20 06:15 Labs: Laboratory Results - last 24 hr 11/04/20 06:15 Hgb 11.5 L Hct 35.4 L [facility] Medical History Arthritis DJD (degenerative joint disease) HLD (hyperlipidemia) HTN (hypertension) Thyroid disease Surgical History History of hysterectomy History of total right hip arthroplasty (06/15/20) Hx of tubal ligation Social History household members: spouse Smoking Status: Current every day smoker alcohol intake: former Discharge Assessment & Plan Assessment and Plan Assessment: Patient is doing well and is stable. Plan of Treatment: Patient is to continue physical therapy in the outpatient setting following discharge from the hospital. First postoperative visit in clinic is scheduled for 2 weeks following discharge. Current pain management regimen is to be continued as it is adequately controlled the patient's pain level. Aspirin 81 mg twice daily is to be continued for 6 weeks for DVT prophylaxis. Aquacel dressing over the incision site is to remain clean, dry, and intact for 2 weeks. Contact the clinic if the dressing becomes damaged or soiled. Patient is to remain weight-bearing as tolerated with the assistance of a front wheeled walker. Contact clinic with any concerns or questions. Any signs of increased redness, swelling, warmth, pain, or discharge from around the incision site should be reported to the clinic. Discharge Plan Discharge Plan Patient Disposition: Home Provider Discharge Comment: Patient cleared for discharge pending PT clearance. Discharge orders & Medications Discharge Orders: Discharge (Order); Ordered 11/04/20 Ordered By: Karthikeyan Solano Prescriptions: New acetaminophen 325 mg Tablet 650 mg PO TID Qty: 90 RF: 0 oxycodone 5 mg Tablet 10 mg PO Q4HR PRN (Reason: Pain, Severe (7-10)) Qty: 42 RF: 0 aspirin 81 mg tablet,delayed release (DR/EC) 81 mg PO BID Qty: 90 RF: 0 Continued meloxicam 15 mg tablet 15 mg PO DAILY RF: 0 lisinopril 20 mg tablet 20 mg PO DAILY RF: 0 amitriptyline 50 mg tablet 50 mg PO DAILY RF: 0 levothyroxine 75 mcg Tablet 75 mcg PO DAILY RF: 0 albuterol sulfate 90 mcg/actuation Hfa Aerosol Inhaler 2 puff INHALATION BID Qty: 0 RF: 0 acetaminophen 325 mg Tablet 650 mg PO TID Qty: 60 RF: 0 aspirin 325 mg tablet,delayed release (DR/EC) 325 mg PO BID Qty: 90 RF: 0 tramadol 50 mg tablet 50 mg PO Q4H RF: 0 Follow up/Referrals: Jadon Phan MD [Primary Care Provider] - Diet/Activity/Treatments Diet: Diet as Tolerated and Regular Activity: Weight-bearing as tolerated with the assistance of a front wheeled walker. Left anterior hip protocol, standard total hip replacement precautions. Skin/Wound/Dressing Care Report to your healthcare provider any signs of infection, such as:: chills, fever, night sweats, unusual drainage and unusual redness Dressing: Aquacel dressing over the incision site is to remain clean, dry, and intact for 2 weeks. Contact clinic if the dressing becomes damaged or soiled. Other wound treatment: Avoid placing topical ointments over the incision site or soaking the incision site until it is completely healed. Visit Report/Discharge Packet Instructions: DI for Hip Replacement Stand Alone Forms: Surgery Discharge Discharge Data Primary Care Provider: Jadon Phan Attending Provider: Mathieu León
[2020-11-04 07:44] VITALS: BP 131/52; PULSE 87; RESP 16; TEMP 36.4; O2SAT 96
[2020-11-04] MEDS: ACETAMINOPHEN 325 MG TABLET 650 MG PO (08:18)
[2020-11-04 08:19] VITALS: BP 131/84; PULSE 81
[2020-11-04] MEDS: AMITRIPTYLINE 25 MG TABLET 50 MG PO (08:19)
[2020-11-04] MEDS: lisinopriL 20 MG TABLET PO (08:19)
[2020-11-04] MEDS: DOCUSATE 100 MG CAPSULE PO (08:19)
[2020-11-04] MEDS: ASPIRIN EC 325 MG TABLET PO (08:19)
[2020-11-04] MEDS: ALBUTEROL 2.5 MG/3 ML NEB (ADULT) INH (09:35)
[2020-11-04 09:38] VITALS: PULSE 84; RESP 20; O2SAT 95
--- NOTE | 2020-11-04 09:51 | PC.NURSE ---
Addendum entered by Mara Avelar R.N. 11/04/20 12:43: Patient up to restroom with assist. Voiding, no complaints at this time. Down for rest of stress test at this time. Addendum entered by Mara Avelar R.N. 11/04/20 11:14: IV removed for D/C. Patient tolerated. Pharmacist in to speak with patient about discharge medications. Patient has organized a ride with her for 1300. Is eager to discharge. Patient currently working with OT. Will continue to manage pain and monitor for complications. Original Note: Patient c/o pain 9/10 with assessment this AM. PO Oxy 10 administered. Had prepared to give IV dilaudid but IV was painful with flush, patient would like to stick to PO medications. CMS intact, dsg CDI, VSS. Lungs CTA, 97% on RA. Patient ambulating with FWW with 1p assist.
--- NOTE | 2020-11-04 10:17 | PT.IPTN ---
Addendum entered and electronically signed by Malinda Rodriguez PTA 11/04/20 11:10: Pt denied any lightheadedness, non symptomatic, didn't assess vitals and stable throughout tx. Original Note: Current Diagnoses Unilateral primary osteoarthritis, left hip (11/03/20) Surgery Performed Operation Date: 11/03/20 07:45 Actual Procedures p Total Hip Arthroplasty/Anterior Approach(Left) - Mathieu León MD Physical Therapy Treatment Note M2 PT-IP Current Condition Start: 11/03/20 17:05 Freq: NEEDED Status: Active Protocol: Document 11/03/20 15:10 AB (Rec: 11/03/20 17:15 AB [id number]) Physical Therapy Current Condition Current Condition Evaluation Date 11/03/20 Treatment Diagnosis s/p L BART anterior approach; difficulty in walking Onset Date 11/03/20 Precautions Anterior Hip Precautions No Hip Extension,No Hip External Rotation Weight Bearing Status Weight Bearing Status Weight Bear as Tolerated Allowed Weight Bearing Amount (enter % LLE WBAT or #) (%) M3 PT-IP Subjective Start: 11/03/20 17:05 Freq: NEEDED Status: Active Protocol: Document 11/04/20 09:40 SP (Rec: 11/04/20 11:08 SP [id number]) Subjective Physical Therapy Visit Type Type Treatment Note Visit Start Time 09:39 Visit Stop Time 10:17 Total Visit Minutes 38 Notes Pt requires increased time to mobilize and as independently as can due to pain 3.5/10 at rest to 5/10 during mobility. Number of CLINICAL RN LIAISON Visits 1 Physical Therapy Visit Comments Patient Comments pt is agreeable to do PT Patient Goals Nervous going home with pain having after this L hip surgery compared to R went really well and is working this time and not sure if will be home to help her if needed. She is trying to find others to help but so far unsuccessful. Therapy Pain Assessment Pain When Pain Assessed At Rest Pain Present Pain Present Pain Reported Location Left Hip Intensity 3 Scale Used 3.5/10 at rest, 5/10 during mobility Description With Movement Pain Behaviors Facial Grimacing,Guarding, Moaning,Restlessness Pain Management Techniques Distraction,Modification of Treatment,Re-positioning, Timing of Activity with Medications M4 PT-IP Mobility and Gait Start: 11/03/20 17:05 Freq: NEEDED Status: Active Protocol: Document 11/04/20 09:40 SP (Rec: 11/04/20 11:08 SP [id number]) PT-Bed Mobility Assessment Supine to Sit Supine to Sit Standby Assistance Scooting Scooting to Edge of Bed Standby Assistance PT-Transfer Assessment Sit to and From Stand Sit to and from Stand Standby Assistance,Use of Upper Extremities Equipment Transfer Assistive Device Gait Belt,Front Wheeled Walker Orthotic/Prosthetic Devices or Brace: No Transfers Transfer Destination Chair,Toilet Transfer Technique ambulated Transfer Ability Level of Assist Standby Assistance,Use of Upper Extremities Comments Mobility Comments Reviewed hip precautions 2/2 good recall and maintained throughout mob. Reviewed LLE post op ex w/ use of strap with slow gentle mus fac to decrease pain cramping. Supine >sitting, scoot to EOB using strap on LLE sBA. Sit>stand SBA using fWW, gait in room step over step patterning R side bed to bathroom 15 ft, retro stepping leading with RLE into bathroom due to how as to do at home smaller space , stable no LOB, completed Stand<>sit usign grab bar and self pericare SBA, ambulated to sink 8 ft, washed hands unsupported sBA and returned to chair SBA using BUE proper hand placement with good stability using FWW. Pt does need extra time for mobiltiy due to pain, elevatd to 5/10. Pt had call light and all needs in reach. Pt is ok to return home when medically cleared. Pt is set up with outpt therapy already. Gait Assessment Gait Gait Assistance Required: Minimum Assistance Distance (Feet) 15 Able to Maintain Weight Bearing Status Yes During Gait Assistive Devices Assistive Device Gait Belt,Front Wheeled Walker Orthotic/Prosthetic Devices or Brace: No Gait Deviations General Gait Pattern Antalgic,Decreased Stride Length,Decreased Feet Clearance,Step-to Gait Factors Limiting Gait Function Factors Limiting Gait Function Decreased Activity Tolerance, Decreased Strength,Limited Range of Motion,Pain Comments Gait Comments see mobility comments Stair Climbing Assessment Comments Stair Climbing Comments Has ramp to enter home. Not need to assess stairs. PT-Balance Assessment Sitting Balance and Reactions Static Sitting Balance Ability Normal Dynamic Sitting Balance Ability Good Standing Balance and Reactions Static Standing Balance Ability Good Dynamic Standing Balance Ability Fair Device Used FWW M5 PT-IP Objective Assessments Start: 11/03/20 17:05 Freq: NEEDED Status: Active Protocol: Document 11/03/20 15:10 AB (Rec: 11/03/20 17:15 AB [id number]) Orientation Orientation/Cognition Level of Alertness Alert Orientation Name,Age,Place,Situation Safety Awareness Decreased Safety Awareness Memory Description Short Term Impaired Strength Lower Extremity Strength Assessment Left Impaired Hip 3+/5 Knee 4-/5 Coordination Assessment Gross Coordination Gross Coordination WNL Sensation Assessment Sensation Sensation Description Numbness Comments Sensation Comments still c/o buttocks numbness Muscle Tone Muscle Tone WNL Yes M6 PT-IP Treatment Start: 11/03/20 17:05 Freq: NEEDED Status: Active Protocol: Document 11/04/20 09:40 SP (Rec: 11/04/20 11:08 SP [id number]) Physical Therapy Treatment Exercises Exercises Ankle Pumps,Gluteal Sets,Quad Sets,Heel Slides Knee ROM Measurement 80deg w/ strap assist Education Education Provided Precautions,Weight Bearing Status,Post-Op Packet,Safety M7 PT-IP Assessment and Plan Start: 11/03/20 17:05 Freq: NEEDED Status: Active Protocol: Document 11/04/20 09:40 SP (Rec: 11/04/20 11:08 SP [id number]) PT Summary Assessment and Plan Potential Rehabilitation Potential Good Status of Condition at Evaluation Stable Summary Impairments Pain,ROM,Strength,Balance, Coordination,Sensation,Tone, Cognition,Bed Mobility, Transfers,Gait,Activity Tolerance Progress Towards Goals Progressing Toward Goals,Slow Progress due to Pain,Slow Progress due to Activity Tolerance Assessment Summary Pt required SBA during all mobility using fWW and strap for LLE repositioning, did good maintaining L hip precautions, requires increased time to mobilize due to pain. Pt is set up with outpt PT and able to go home with assist of as needed when medically cleared. Goals Bed Mobility Goal Independent Transfer Goal Independent,Front Wheeled Walker Gait Goal Independent,Front Wheel Walker Gait Distance 250 Days to Meet Goals 5 Frequency of Treatment Frequency Of Treatment Twice a Day Treatment Plan Physical Therapy Treatment Plan Bed Mobility Training,Transfer Training,Gait Training, Therapeutic Exercise,Balance Retraining,Post Op Education, Discharge Planning,Hot or Cold Pack,Neuromuscular Re-ed, Coordination Retraining,Manual Therapy Other Recommendations and Next Treatment Futher distance gait, standing Focus balanace activities for increased endurance in standing for ADLs in kitchen for self cooking. Precautions Anterior Hip Precautions No Hip Extension,No Hip External Rotation Other Precautions WBAT LLE Recommendations To Nursing Amount of Assist Needed Standby Assistance Discharge Recommendations PT Discharge Recommendations Home with Assistance, Outpatient PT Transportation Needs at Discharge Private Vehicle
[2020-11-04] MEDS: OXYCODONE IR 5 MG TABLET PO (10:45)
--- NOTE | 2020-11-04 11:10 | CM.DANOTE ---
DCP Discharge Home Patient is a 60 yo female who was admitted on 11/03/20 for Left Hip surgery. Pt has [facility] and [facility] for insurance and her PCP is Jadon Phan. EMR was reviewed. Per Ortho PA, pt tolerated procedure well and now with pain well managed on orals and ambulating with walker and medically stable to d/c home today after final PT and no identified barriers to discharge. Per PT, recommending safe d/c home with spouse assist and outpt PT. No bedside assessment completed at this time due to triage needs and no d/c barriers. Plan: Patient to d/c home today via spouse POV and outpt PT and no further SW needs at this time. GO Vinson
[2020-11-04 12:00] VITALS: BP 100/53; RESP 16; TEMP 36.6; O2SAT 94
== END 2020-11-04 13:00 | disposition home or self-care (01) ==
LOC: OR 06:21 → AC 10:25
PROVIDERS: PCP Family Medicine; Referring Provider Orthopaedic Surgery Adult Reconstructive Orthopaedic Surgery; Visit Provider Orthopaedic Surgery Adult Reconstructive Orthopaedic Surgery
PROC: (CPT 27130; principal; 2020-11-03 07:45)
DX: M16.12 Unilateral primary osteoarthritis, left hip (principal); E78.5 Hyperlipidemia, unspecified; I10 Essential (primary) hypertension; F17.210 Nicotine dependence, cigarettes, uncomplicated
CPT/HCPCS: 27130; 36415; 72170; 73502; 76000; 85014; 85018; 94640; 94762; 97116; 97161; 97530; C1776; J0690; J1100; J1170; J1885; J2250; J2270; J2274; J2405; J2704; J3010; J7613